=== PATIENT | female | born 1990 | race Caucasian/White ===

== ENCOUNTER 2017-11-29 04:13 | Emergency (ER) | payer OTHER ==
[2017-11-29] MEDS ORDERED: NS 0.9% 1000 ML* 1,000 ML IV ONE (04:34)
[2017-11-29 04:57] LABS: ABS Basophils 0.1 10^3/ul (0-0.2); ABS Eosinophils 0.1 10^3/ul (0-0.6); ABS Lymphocytes 2.3 10^3/ul (1.0-4.8); ABS Monocytes 0.4 10^3/ul (0-0.8); ABS Neutrophils 2.7 10^3/ul (1.5-7.7); ABS Nucleated RBC 0 10^3/ul; Eosinophil % 1.4 % (0-6); Hematocrit 39 % (35-47); Hemoglobin 13.2 g/dl (12.0-16.0); Lymphocyte % 41.2 % (25-47); Mean Corpuscular HGB Conc 34 g/dl (31-36); Mean Corpuscular Hemoglobin 32 pg (27-31); Mean Corpuscular Volume 94 fL (80-97); Mean Platelet Volume 8.2 um3 (7.4-10.4); Nucleated Red Blood Cells % 0.1; Platelet Count 270 10^3/ul (150-450); Red Blood Count 4.18 10^6/ul (4.00-5.40); Red Cell Distribution Width 13 % (10.5-15); White Blood Count 5.6 10^3/ul (3.5-10.8)
--- NOTE | 2017-11-29 04:58 | ED ---
Syncope/Near Syncope - HPI Summary HPI Summary: This patient is a 27 year old F BIBA to [facility] accompanied by her roommate s/p syncope that occurred CHARRER. Pt states she woke up, was unable breath, so she used her inhaler twice, and it did not work either time. At this point she went to go inform her roommate and as she was doing so she lost vision and passed out. Her roommate called 911 and states she was out for a second or two. The patient rates the pain 1/10 in severity. Patient reports chest tightness. As EMS arrived the patient used her inhaler again which alleviated sx. Hx asthma first attack Patient denies incontinence. - History Of Current Complaint Chief Complaint: EDSyncope Time Seen by Provider: 11/29/17 04:23 Hx Obtained From: Patient Onset/Duration: Lasting Minutes, Resolved Timing: Intermittent Episode Lasting Context: Witnessed Activity At Onset: Other Associated Head Trauma: No Alleviating Factor(s): Spontaneous Resolution Associated Signs And Symptoms: Chest Pain - Allergies/Home Medications Allergies/Adverse Reactions: Allergies Allergy/AdvReac Type Severity Reaction Status Date / Time cefaclor [From [facility]] Allergy Hives Verified 11/29/17 04:25 pineapple Allergy Unknown Verified 11/29/17 04:25 Reaction Details Home Medications: Home Medications Albuterol HFA INHALER* 2 puff INH Q4HR PRN 11/29/17 [History Confirmed 11/29/17] PMH/Surg Hx/FS Hx/Imm Hx Endocrine/Hematology History: Reports: Hx Thyroid Disease Cardiovascular History: Denies: Hx Congestive Heart Failure Respiratory History: Reports: Hx Asthma Denies: Hx Chronic Bronchitis, Hx Chronic Obstructive Pulmonary Disease (COPD ), Hx Cystic Fibrosis Musculoskeletal History: Denies: Hx Rheumatoid Arthritis, Hx Back Problems Neurological History: Denies: Hx Transient Ischemic Attacks (TIA) Infectious Disease History: No Infectious Disease History: Reports: Traveled Outside the [place] in Last 30 Days - [place] - Family History Known Family History: Negative: Respiratory Disease, Seizure Disorder - Social History Lives: Dormitory/Roommates Alcohol Use: Weekly Substance Use Type: Reports: None Smoking Status (MU): Never Smoked Tobacco Review of Systems Positive: Other - loss of sight Positive: Chest Pain Positive: Shortness Of Breath Gastrointestinal: Negative - incontinence. Genitourinary: Negative - incontinence. Positive: Syncope All Other Systems Reviewed And Are Negative: Yes Physical Exam - Summary Physical Exam Summary: VITAL SIGNS: Reviewed. GENERAL: Patient is a well-developed and nourished female who is lying comfortable in the stretcher. Patient is not in any acute respiratory distress. HEAD AND FACE: No signs of trauma. No ecchymosis, hematomas or skull depressions. No sinus tenderness. EYES: PERRLA, EOMI x 2, No injected conjunctiva, no nystagmus. EARS: Hearing grossly intact. Ear canals and tympanic membranes are within normal limits. MOUTH: Oropharynx within normal limits. NECK: Supple, trachea is midline, no adenopathy, no JVD, no carotid bruit, no c- spine tenderness, neck with full ROM. CHEST: Symmetric, no tenderness at palpation LUNGS: Clear to auscultation bilaterally. No wheezing or crackles. CVS: Regular rate and rhythm, S1 and S2 present, no murmurs or gallops appreciated. ABDOMEN: Soft, non-tender. No signs of distention. No rebound no guarding, and no masses palpated. Bowel sounds are normal. EXTREMITIES: FROM in all major joints, no edema, no cyanosis or clubbing. NEURO: Alert and oriented x 3. No acute neurological deficits. Speech is normal and follows commands. SKIN: Dry and warm Triage Information Reviewed: Yes Vital Signs On Initial Exam: Initial Vitals Temp Pulse Resp BP Pulse Ox 98.1 F 63 16 115/76 100 11/29/17 04:20 11/29/17 04:20 11/29/17 04:20 11/29/17 04:20 11/29/17 04:20 Vital Signs Reviewed: Yes Diagnostics - Vital Signs Vital Signs Temp Pulse Resp BP Pulse Ox 11/29/17 04:21 75 12 115/76 99 11/29/17 04:20 98.1 F 63 16 115/76 100 - Laboratory Result Diagrams: 11/29/17 04:49 11/29/17 04:49 Lab Statement: Any lab studies that have been ordered have been reviewed, and results considered in the medical decision making process. - EKG 0423 Cardiac Rate: NL EKG Rhythm: Sinus Rhythm - at 67 BPM EKG Interpretation: incomplete RBBB Course/Dx Assessment/Plan: This patient is a 27 year old F BIBA to [facility] accompanied by her roommate s/p syncope that occurred [place]ARRER. Pt states she woke up, was unable breath, so she used her inhaler twice, and it did not work either time. At this point she went to go inform her roommate and as she was doing so she lost vision and passed out. Her roommate called 911 and states she was out for a second or two. The patient rates the pain 1/10 in severity. Patient reports chest tightness. As EMS arrived the patient used her inhaler again which alleviated sx. Hx asthma first attack Patient denies incontinence. An EKG reveals imcomplete RBBB. Blood work showed hypothyroidism. In the ED course the patient was given Iv fluids and potassium. Patient will be discharged and follow up from [facility]. The patient is agreeable with this plan. - Diagnoses Provider Diagnoses: Syncope, Hypothyroid, Asthma Discharge - Sign-Out/Discharge Documenting (check all that apply): Patient Departure - Discharge Plan Condition: Critical Disposition: HOME Patient Education Materials: Asthma (ED), Syncope (ED), Hypothyroidism (ED) Additional Instructions: RETURN TO THE EMERGENCY DEPARTMENT FOR CHANGING OR WORSENING SYMPTOMS. FOLLOW UP WITH PCP IN 1-2 DAYS. [facility], see them ADAM. - Attestation Statements Document Initiated by Scribe: Yes Documenting Scribe: David Fulton Provider For Whom Scribe is Documenting (Include Credential): Flor Cervantes MD Scribe Attestation: David Ca, scribed for Flor Cervantes MD on 11/29/17 at 0540.
[2017-11-29 05:15] LABS: EGFR Non-African American 103.7 (>60)
[2017-11-29] MEDS ORDERED: Potassium Chlor TAB* 20 MEQ TAB.ER PO ONE (05:35)
[2017-11-29 06:41] VITALS: BP 121/76
== END 2017-11-29 06:20 | disposition home or self-care (01) ==
LOC: ED 04:13
DX: R55 Syncope and collapse (principal); E03.9 Hypothyroidism, unspecified; J45.909 Unspecified asthma, uncomplicated; R07.89 Other chest pain; I45.10 Unspecified right bundle-branch block; Z88.3 Allergy status to other anti-infective agents
CPT/HCPCS: 36415; 80053; 83735; 84443; 84484; 84702; 85025; 93005; 96360; 99283; A9270-GY